=== PATIENT | female | born 1955 | race Asian ===

== ENCOUNTER 2019-10-02 11:00 | Outpatient (CLI) | payer BC | END 2019-10-02 19:14 | disposition home or self-care (01) | LOC: RAD 11:00 | DX: R76.11 Nonspecific reaction to tuberculin skin test without active tuberculosis (principal) ==

== ENCOUNTER 2019-11-13 12:03 | Outpatient (CLI) | payer BC | END 2019-11-13 22:57 | disposition home or self-care (01) | LOC: RAD 12:03 | DX: J20.8 Acute bronchitis due to other specified organisms (principal) ==

== ENCOUNTER 2020-05-29 16:47 | Inpatient (IN) | payer OTHER ==
[~2020-05-29] VITALS: Ht 160 cm; Wt 88.6 kg
[2020-05-29 18:57] LABS: PLATELET COUNT 277 K/uL (152-353)
[2020-05-29 19:09] VITALS: BP 172/91; TEMP 98.3; Ht 160 cm; Wt 88.6 kg
[2020-05-29 19:15] LABS: POTASSIUM 4.1 mmol/L (3.6-5.2)
[2020-05-29 20:00] VITALS: BP 140/71; TEMP 98.4
[2020-05-30] VITALS: BP 110/51; TEMP 98.2
[2020-05-30 04:00] VITALS: BP 99/50; TEMP 98.1
[2020-05-30 08:00] VITALS: BP 138/77; TEMP 97.9
[2020-05-30 12:00] VITALS: BP 131/80; TEMP 98.3
[2020-05-30 16:00] VITALS: BP 124/63; TEMP 98.4
[2020-05-30 20:00] VITALS: BP 100/53; TEMP 98.2
[2020-05-31] VITALS: BP 131/69; TEMP 98.6
[2020-05-31 04:00] VITALS: BP 110/48; TEMP 98
[2020-05-31 04:43] LABS: PLATELET COUNT 228 K/uL (152-353)
[2020-05-31 05:33] LABS: POTASSIUM 3.7 mmol/L (3.6-5.2)
[2020-05-31 08:00] VITALS: BP 136/72; TEMP 98.1
[2020-05-31 12:00] VITALS: BP 149/81; TEMP 98.3
[2020-05-31 16:00] VITALS: BP 122/51; TEMP 97.9
== END 2020-05-31 18:34 | disposition home or self-care (01) | DRG 179 ==
LOC: MED/SURG 16:47
PROVIDERS: ADMIT Family Medicine
DX: U07.1 COVID-19 (principal); D86.0 Sarcoidosis of lung; R49.0 Dysphonia; R09.02 Hypoxemia; I10 Essential (primary) hypertension
CPT/HCPCS: 36415; 80053; 82728; 83735; 84100; 85027; 85379; 86140; 87040; 87070; 87205; 87635; 93005; 94667; 94668; 94760; J0456; J0696; J1100; J1650; J1885; U0003